=== PATIENT | female | born 1970 | race Caucasian/White ===

== ENCOUNTER 2024-07-24 14:18 | Emergency (ER) | payer OTHER ==
[~2024-07-24] VITALS: Ht 167.6 cm; Wt 73.9 kg
--- NOTE | 2024-07-24 14:29 | ERN ---
General Chief Complaint: Allergic Reaction Stated Complaint: ALLERGIC REACTION Time Seen by MD: 14:20 History of Present Illness Initial Comments 54-year-old female who presents for allergic reaction. She reports he was stung by a bee in the cheek about 30 minutes prior to arrival. She was swelling to the left side of the cheek. There was no tongue involvement. No throat involvement. No respiratory distress no wheezing. 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 HEAD/FACE: Face swelling after allergic reaction to a bee sting EENT: No eye pain, no blurred vision, no tearing, no double vision, no ear pain, no ear discharge, no nose pain, no nasal congestion, no throat pain, no throat swelling, no mouth pain. RESPIRATORY: No cough, no orthopnea, no SOB, no stridor, no wheezing. CARDIOVASCULAR: No chest pain, no edema, no palpitations, no syncope. GASTROINTESTINAL/ABDOMINAL: No abdominal pain, no constipation, no diarrhea, no nausea, no vomiting. GENITOURINARY: No abnormal discharge, no dysuria, no frequent urination, no hematuria. No complaints of pain in the genitals. MUSCULOSKELETAL: No back pain, no gout, no joint pain, no joint swelling, no muscle pain, no muscle stiffness, no neck pain. INTEGUMENTARY: No change in color, no change in hair/nails, no dryness, no lesion, no lumps, no rash. NEUROLOGICAL/PSYCH: No anxiety, not depressed, no emotional problem, no headache, no numbness, no pre-existing deficit, no history of seizures, no tremors, no weakness. HEMATOLOGIC/LYMPHATIC: Not anemic, no history of blood clots, no apparent bleeding, no bruising, glands not swollen. All Systems Negative, Except as Noted. Physical Exam Physical Exam Dictation VITAL SIGNS: Reviewed. GENERAL APPEARANCE: Alert, oriented x3, no acute distress HEAD AND FACE: Left cheek swelling. Otherwise no swelling or abnormalities. EYES: PERRL, pink conjunctivas, eyelid no trauma, anterior chamber clear. EARS: Pinnas intact and no signs of trauma or erythema. Ear canals clear and no discharge. TMs no erythema. NOSE: No discharge, no bleeding. OROPHARYNX: Mouth normal, teeth no caries, tongue pink. Pharynx clear, no erythema. Tonsils no exudates, no abscesses noted. Mucous membrane moist. NECK: Supple, non-tender, no thyromegaly, no masses, no JVD, no bruits. BREAST: Deferred. CHEST: No tenderness, no crepitus, no paradoxical movement, no retractions. LUNGS: Clear, well-ventilated, symmetric, no rales, no wheezing, no rhonchi, no stridor, good breath sounds bilaterally. HEART: Regular rate, regular rhythm, no murmur, no gallops. VASCULAR: No peripheral edema. ABDOMEN: Soft, positive bowel sounds, nondistended, no guarding, nontender, no rebound, no masses no hepatomegaly, no splenomegaly, no Fisher's sign, no hernias. RECTAL: Deferred. GENITAL: Deferred. NEUROLOGICAL: Normal speech, gross motor function intact, gross sensory function intact. MUSCULOSKELETAL: Neck nontender, full range of motion, back nontender, full range of motion. EXTREMITIES: Nontender, full range of motion. SKIN: Color pink, dry, no turgor, no rash, no lacerations, no abrasions, no contusions. LYMPHATICS: Deferred. ED Course Orders Procedure Category Date Status Time Methylprednisolone PHA 07/24/24 Complete Succ 40mg (Solu-Medro 14:30 Diphenhydramine Hcl PHA 07/24/24 Complete (Benadryl Inj) 14:30 Current Medications Medications (Trade) Dose Ordered Sig/Brenda Route PRN Reason Start Time Stop Time Status Last Admin Dose Admin Diphenhydramine HCl (BENAdryl INJ) 25 mg ONCE ONCE IM 07/24/24 14:30 07/24/24 14:31 DC 07/24/24 15:45 Methylprednisolone Sodium Succinate (Solu-medROL 40MG) 40 mg ONCE ONCE IM 07/24/24 14:30 07/24/24 14:31 DC 07/24/24 15:45 Vital Signs Date Time Temp Pulse Resp B/P (MAP) Pulse Ox O2 Delivery O2 Flow Rate FiO2 07/24/24 14:25 90 16 222/130 99 Room Air DX & DISP Disposition: Discharge Departure Impression: Primary Impression: Allergic reaction Condition: Stable Scripts Epinephrine (Epinephrine) 0.3 Mg/0.3 Ml Auto.injct 1 SYR IM ONCE for 1 Day, #0.6 ML 0 Refills Prov: KAIDEN MOODY DO 07/24/24 Prednisone (Prednisone) 20 Mg Tablet 1 TAB PO TID for 6 Days, #15 TAB 0 Refills Prov: KAIDEN MOODY DO 07/24/24 Additional Instructions: Your symptoms are consistent with a allergic reaction. Here in the ER you received IM Solu-Medrol and Benadryl. I have prescribed prednisone 20 mg tabs. You can take three tabs daily for the next two days. For days three and four take two tabs. Four days five and six take one tab. You can also take Benadryl 25 mg 3 times per day and Pepcid once per day. These medications are [id number]. Use these as needed. You did not have to take these medications if you do not want to. I have prescribed an epinephrine autoinjector. Please use for significant allergic reactions that include respiratory distress or airway swelling. Please return to the emergency department as needed. Referrals: SELF,REFERRAL (PCP) KAIDEN MOODY DO Jul 24, 2024 14:29
[2024-07-24] MEDS: Solu-medROL 40MG VIAL IM ONE (15:45)
[2024-07-24] MEDS: DiphenhydrAMINE HCL 50 MG/ML VIAL IM ONE (15:45)
[2024-07-24] MEDS ORDERED: PRED20TA3 PO (15:47)
[2024-07-24] MEDS ORDERED: EPIN0.3P19 IM (15:47)
[2024-07-24 15:53] VITALS: BP 181/98; PULSE 80; RESP 16; TEMP 98.3; O2SAT 98
== END 2024-07-24 16:07 | disposition home or self-care (01) ==
LOC: EDH 14:18
DX: T78.40XA Allergy, unspecified, initial encounter (principal); Z88.8 Allergy status to other drugs, medicaments and biological substances; Z91.041 Radiographic dye allergy status; X58.XXXA Exposure to other specified factors, initial encounter
CPT/HCPCS: 99284; 96372 ×2; J2919; J1200 ×2